=== PATIENT | male | born 1995 | race Two or more races ===

== ENCOUNTER → 2019-08-02 | Emergency (ER) | payer SELFPAY ==
[2019-08-02 20:15] VITALS: BP 0/0
== END | disposition expired ==
LOC: EDBD 20:15 → ER 20:19
DX: T71.162A Asphyxiation due to hanging, intentional self-harm, initial encounter (principal); S19.9XXA Unspecified injury of neck, initial encounter; I46.9 Cardiac arrest, cause unspecified; X58.XXXA Exposure to other specified factors, initial encounter; Y93.89 Activity, other specified; Y92.89 Other specified places as the place of occurrence of the external cause; Y99.8 Other external cause status
CPT/HCPCS: 31500; 92950